=== PATIENT | female | born 1945 | race Caucasian/White ===

== ENCOUNTER → 2016-12-18 | Outpatient (CLI) | payer OTHER | LOC: BMCIMAGING 11:30 | PROVIDERS: ATTEND Family Medicine | DX: S22.42XA Multiple fractures of ribs, left side, initial encounter for closed fracture (principal) | CPT/HCPCS: 71101-PO ==

== ENCOUNTER → 2017-01-21 | Outpatient (CLI) | payer OTHER | LOC: FIMAGING 08:37 | DX: Z12.31 Encounter for screening mammogram for malignant neoplasm of breast (principal); Z80.3 Family history of malignant neoplasm of breast | CPT/HCPCS: G0202 ==

== ENCOUNTER → 2017-03-18 | Outpatient (CLI) | payer OTHER | LOC: BMCIMAGING 11:21 | PROVIDERS: ATTEND Internal Medicine | DX: Z13.820 Encounter for screening for osteoporosis (principal); M81.0 Age-related osteoporosis without current pathological fracture; M85.80 Other specified disorders of bone density and structure, unspecified site ==

== ENCOUNTER → 2017-12-08 | Outpatient (CLI) | payer OTHER | LOC: BMCIMAGING 10:58 | PROVIDERS: ATTEND Podiatrist Foot & Ankle Surgery | DX: M19.072 Primary osteoarthritis, left ankle and foot (principal) ==

== ENCOUNTER → 2018-01-24 | Outpatient (CLI) | payer OTHER | LOC: FIMAGING 10:40 | PROVIDERS: ATTEND Internal Medicine | DX: Z12.31 Encounter for screening mammogram for malignant neoplasm of breast (principal) ==